=== PATIENT | female | born 1935 | race Caucasian/White ===

== ENCOUNTER 2018-01-16 07:58 | Day surgery (SDC) | payer OTHER ==
[~2018-01-16] VITALS: Ht 144.8 cm; Wt 72.6 kg
--- NOTE | 2018-01-16 08:05 | NUR ---
0800 PT ARRIVED TO THE UNIT AMBULATING. PT AAOX4, VSS, DENIES PAIN. VS 135/61, HR 64, RR 18, O2 SAT 98%, TEMP 97.6. PT HERE FOR IRON INFUSING ORDERED BY DR. VARGAS. PT'S FAMILY AT BEDSIDE. 0820 ATTEMPTED TO GET IV ACCESS ON PT, BUT UNABLE TO DO SO. ATTEMPTED ON LEFT HAND AND LEFT AC. WILL HAVE ANOTHER NURSE TRY. 08 LEW RN AT BEDSIDE TRYING TO GET IV ACCESS BUT UNABLE TO DO SO. PT AND FAMILY WANT TO RESCHEDULE AND WANT TO GO HOME. [address] VARGAS AND NOTIFY HIM THAT PT AND FAMILY WANT TO GO HOME AND RESCHEDULE FOR ANOTHER DAY. DR. VARGAS ASKED TO SPEAK WITH PT'S DAUGHTER AND CONVINCED HER TO STAY. DR. VARGAS ORDERED TO CALL A NURSE FROM ICU AND TRY TO GET IV ACCESS. 919 CALLED ICU NURSE, MAURICE AND SAID SHE WOULD COME TO TRY TO START IV. [address] VARGAS ORDERS. 1010 ICU NURSE MAURICE AT BEDSIDE ATTEMPTED TO GET IV ACCESS BUT WAS UNABLE TO START IV. FAMILY WANTS TO GO HOME. WILL NOTIFY DR. LANCE. 1015 DR. VARGAS AWARED THAT PT AND FAMILY WANT TO GO HOME, DR VARGAS SAID IT IS OK TO GO HOME BUT ORDER CBC STAT, WILL FOLLOW UP ON ORDERS. 1034 CAMPAIGN DEVELOPERBRITTANY MAGALLON AT BEDSIDE DRAWING LABS. PT AND FAMILY WANT TO GO HOME, ADVISED THEM TO STAY UNTIL LAB RESULTS ARE AVAILABLE, THEY AGREED TO WAIT FOR LAB RESULTS. 1113 LAB RESULTS ARE UP/AVAILABLE. CALLED DR. VARGAS AND NOTIFIED HIM ON THE LAB RESULT, DR. VARGAS IS AWARED AND ORDERED TO GIVE A COPY TO PT, PER DIRECTOR LISSETH IT IS OK TO GIVE COPY OF LAB RESULTS. 1120 PT DISCHARGED IN STABLE CONDITION. DUE TO NO IV ACCESS, IRON INFUSION WAS NOT GIVEN.
[2018-01-16] MEDS ORDERED: SODIUM FERRIC GLUCONATE 125 MG in NACL 0.9% 100 ML IV SCH (10:30)
[2018-01-16 10:55] LABS: BASOPHILS % (AUTO) 0.2 % (0.0-2.0); EOSINOPHILS % (AUTO) 0.7 % (0.0-4.0); HEMATOCRIT 25.4 % (36-48); HEMOGLOBIN 7.5 g/dL (12.0-16.0); LYMPHOCYTES # (AUTO) 1.1 K/uL (2.5-16.5); LYMPHOCYTES % (AUTO) 17.8 % (20.5-51.1); MEAN CORPUSCULAR HEMOGLOBIN 19 pg (27-31); MEAN CORPUSCULAR HGB CONC 29 g/dL (33-37); MEAN CORPUSCULAR VOLUME 64.5 fL (80-94); MONOCYTES # (AUTO) 0.4 K/uL (0.8-1.0); MONOCYTES % (AUTO) 5.6 % (1.7-9.3); NEUTROPHILS # (AUTO) 4.8 K/uL (1.8-7.7); NEUTROPHILS % (AUTO) 75.7 % (42.2-75.2); PLATELET COUNT (AUTO) 250 K/uL (140-450); RED BLOOD CELL COUNT(AUTO) 3.94 MIL/uL (4.20-5.40); RED CELL DISTRIBUTION WIDTH 17.8 % (11.6-13.7); WHITE BLOOD COUNT (AUTO) 6.3 K/uL (4.8-10.8)
== END 2018-01-16 11:20 | disposition home or self-care (01) ==
LOC: MDS 07:58 → MMU 08:00 → MDS 11:20
PROVIDERS: ATTEND Internal Medicine Gastroenterology
DX: D50.9 Iron deficiency anemia, unspecified (principal); Z53.8 Procedure and treatment not carried out for other reasons; Z79.899 Other long term (current) drug therapy
CPT/HCPCS: 36415; 85025; J2916; J7030